=== PATIENT | female | born 1950 | race Caucasian/White ===

== ENCOUNTER → 2018-02-24 | Outpatient (CLI) | payer OTHER ==
[~2018-02-24] MED LIST: TESSALON PERLE100 MG PO; ZPAK PO
== END ==
LOC: M.RAD 02-04 16:57
DX: Z00.01 Encounter for general adult medical examination with abnormal findings (principal); Z12.31 Encounter for screening mammogram for malignant neoplasm of breast; Z78.0 Asymptomatic menopausal state; M85.89 Other specified disorders of bone density and structure, multiple sites

== ENCOUNTER → 2018-03-04 | Outpatient (CLI) | payer OTHER | LOC: M.NUC 02-24 08:36 | DX: E21.3 Hyperparathyroidism, unspecified (principal); E34.9 Endocrine disorder, unspecified ==

== ENCOUNTER → 2018-09-22 | Outpatient (CLI) | payer OTHER ==
[2018-09-22] VITALS (9 sets, daily range): BP systolic 106–134; BP diastolic 53–70
[~2018-09-22] MED LIST changes: +AMBIEN 10 MG TA10 MG PO; +AMBIEN 5 MG TABL5 M1 PO; +AMOXICILLIN 50500 MG; +ANORO ELLIPTA1 EACH INH; +ASPIRIN81 M2 PO; +CEFDINIR300 MG PO; +CLARITIN10 MG PO; +DIGOXIN125 MCG PO; +ELIQUIS5 MG PO; +FLEXERIL PO; +HYDROCHLOROTH12.5 M1 PO; +HYDROCHLOROTHIA25 M1 PO; +IMDUR 30 MG TAB30 M1 PO; +LIDOPATCH1 EACH TOP; +LISINOPRIL10 MG PO; +LISINOPRIL20 MG PO; +LISINOPRIL40 MG PO; +LIVALO4 MG PO; +LOPRESSOR25 PO; +MAXZIDE-25 MG1 EACH PO; +METFORMIN HCL500 MG PO; +PREDNISONE 10 M10 MG PO; +PROCARDIA XL30 MG PO; +SERTRALINE HCL50 MG PO; +SORINE 80 MG TA80 M1 PO; +TRAMADOL 50 MG50 MG PO; +TRAZODONE HCL50 MG PO; +VENTOLIN HFA 1818 GM INH; +VOLTAREN GEL 1100 G1 TOP; +VOLTAREN GEL 1100 G2 TOP; +XANAX 0.5 MG0.5 MG PO; +ZYRTEC10 MG PO
[2018-09-22 12:30] LABS: HEMOGLOBIN 12.6 gm/dL (12.0-15.0); MCH 28.6 pg (26.0-34.0); MCHC 33.3 g/dL (28.0-37.0); MPV 9.9 fl. (7.2-11.1); RBC 4.42 mil/uL (4.20-5.00); RDW-CV 13.7 % (10.5-14.5); WBC 8.2 thou/uL (4.0-11.0)
[2018-09-22 12:37] LABS: ANION GAP 9 mmol/L (7-16); BUN 12 mg/dL (7-18); CALCIUM 10.4 mg/dL (8.5-10.1); CHLORIDE 102 mmol/L (98-107); CO2 28 mmol/L (21-32); CREATININE 1.1 mg/dL (0.6-1.3); GLUCOSE 111 mg/dL (70-99); POTASSIUM 3.5 mmol/L (3.5-5.1); SODIUM 139 mmol/L (136-145)
[2018-09-22 12:38] LABS: APTT 27.7 Seconds (25.0-31.3); PROTIME 10.3 Seconds (9.20-11.50)
[2018-09-22 12:41] LABS: CHOLESTEROL 165 mg/dL (<200); HDL CHOLESTEROL 44 mg/dL (>40); LDL CHOLESTEROL 88 mg/dL (<100); TC:HDL 3.8 Ratio (Not establshd); TRIGLYCERIDE 165 mg/dL (<150); VLDL 33 mg/dL (<40)
[2018-09-22 12:44] LABS: SERUM ASSESSMENT Clear
--- NOTE | 2018-09-22 14:51 | EKG ---
[place] [address] ELECTROCARDIOGRAM REPORT Name: NABILA GAN Room: [facility]#: [id number] Admission: 09/22/18 Attend Phys: Ky Morgan MD Discharge: Date of : 46 Report #: [id number] THIS REPORT FOR: //name// [facility] Test Date: 2018-09-22 Test Time: 12:16:03 Pat Name: NABILA GAN Department: Room: Gender: F Call Center Agent: GUILLERMO : 1950 Requested By: Ky Morgan Order Number: [id number] Reading MD: Ky Morgan Measurements Intervals [place] Rate: 63 P: 56 [place]: 167 QRS: 30 QRSD: 108 T: 48 QT: 428 QTc: 439 Interpretive Statements Sinus rhythm Compared to ECG 10/27/2007 23:05:38 No significant changes Electronically Signed On 09-22-2018 14:51:41 CDT by Ky Morgan [email or web address] <ELECTRONICALLY SIGNED> By: Ky Morgan MD, [facility] 09/22/18 1451 1216 1216 Ky Morgan MD, FACC /EPI
--- NOTE | 2018-09-27 17:16 | CARD ---
[address] [address] CARDIAC CATH REPORT Name: NABILA GAN Room: [facility].#: [id number] Admission: 09/22/18 Attend Phys: Ky Morgan MD Discharge: Date of : 48 Report #: [id number] THIS REPORT FOR: //name// APPROVED REPORT Study performed: 09/22/2018 12:37:21 Patient Details Patient Status: Out-Patient Room #: The patient is a 68 year-old female Event Personnel Ky Morgan Pit Recorder, Agnieskza Goyal RN Weapons System Instrument Mechanic, Gerry Regaldao ScrubAlexander Anthony ARRT (R) Monitor Procedures Performed Left Heart Cath w/or w/o Coronaries Procedure Narrative The patient was brought electively to the Cardiac Catheterization Laboratory and was prepped and draped in a sterile manner. A 6fr Ultimum Sheath sheath was inserted into the right femoral artery. Coronary angiography was performed using coronary diagnostic catheters. The right coronary system was accessed and visualized with a Diagnostic JR 4 catheter. The left coronary system was accessed and visualized with a Diagnostic JL4 catheter. The left ventricle was accessed and visualized with a Diagnostic Angled Pig catheter. Left ventricular/Aortic Valve gradient assessed via catheter pullback. Closure device was deployed with a Fr Mynx 6Fr/7Fr. The patient tolerated the procedure well and there were no complications associated with the procedure. Intraoperative Conscious Sedation Sedation start time: 13:15 Case end Time: 13:38 Fentanyl 50 mcg Versed 2 mg Fluoro Time: 5.0 minutes Dose: DAP [id number] cGycm2 1538 mGy Contrast Type and Amount: Omnipaque 150 ml Coronary Angiography The patient's coronary anatomy is right dominant. [place] [address] CARDIAC CATH REPORT Name: NABILA GAN Room: [facility]#: [id number] Admission: 09/22/18 Attend Phys: Ky Morgan MD Discharge: Date of : 46 Report #: [id number] A MAI graft to the distal LAD was widely patent. A saphenous vein graft to a small first diagonal branch was widely patent. A saphenous vein graft sequentially grafted to the PDA, posterolateral LV branch of the right coronary artery, third obtuse marginal and first obtuse marginal branch was patent. There was a moderate 50% narrowing in the portion between the third and first obtuse marginal branch. Diagnostic Cath Left Main Free of significant disease and bifurcates into the LAD and circumflex systems. LAD Mildly plaqued proximally with an 80% mid stenosis followed by a long segment of diffuse disease up to 90% prior to the insertion of a MAI graft. The distal LAD is mildly plaqued and fills primarily by a MAI graft. Diagonal 1 Totally occluded and filled by saphenous vein graft. Small in caliber. Circumflex Free of significant disease. OM1 Totally occluded proximally and filled by a saphenous vein graft. OM2 Moderate size and branched area. Significant disease. OM3 Totally occluded proximally and filled by saphenous vein graft. Right Coronary 50% narrowed proximally. 80% narrowed after the takeoff of an acute marginal branch. The distal vessel is diffusely diseased. R PDA Totally occluded at the origin. Filled by saphenous vein graft. RPLV Moderate he's proximally. Filled by a saphenous vein graft. Left Ventriculography The left ventricle is normal in size with normal contractility. The left ventricular ejection fraction is estimated to be 55-60%. Left ventricular wall motion abnormalities are not present. Hemodynamics The aortic pressure is 172/76 mmHg with a mean of 113 mmHg. The left ventricular pressure is 175/4 mmHg with a mean of mmHg. The left ventricular end diastolic pressure is 22 mmHg. Conclusion 1. Severe three-vessel coronary artery disease [place] [address] CARDIAC CATH REPORT Name: NABILA GAN Room: [facility]#: [id number] Admission: 09/22/18 Attend Phys: Ky Morgan MD Discharge: Date of : 48 Report #: [id number] total occlusion of the first obtuse marginal, third obtuse marginal and posterior descending branches of the right coronary artery. 2. Patent MAI graft to the distal LAD. 3. Patent saphenous vein graft to the first diagonal branch. 4. Patent jump graft to the PDA, PL LV, third obtuse marginal and first obtuse marginal branch. There is a 50% narrowing in the portion of the graft from the third to first obtuse marginal branches. 5. Preserved left ventricular systolic function. 6. Moderately elevated left ventricular end-diastolic pressure. Recommendations 1. Continue medical management and aggressive risk factor modification. <ELECTRONICALLY SIGNED> By: Ky Morgan MD, [facility] 09/27/181715 15 15Micchani Morgan MD, FACC /INF
== END | disposition home or self-care (01) ==
LOC: M.CL 11:04
PROVIDERS: Internal Medicine Cardiovascular Disease
DX: I25.709 Atherosclerosis of coronary artery bypass graft(s), unspecified, with unspecified angina pectoris (principal); I11.0 Hypertensive heart disease with heart failure; I50.30 Unspecified diastolic (congestive) heart failure; J44.9 Chronic obstructive pulmonary disease, unspecified; F41.9 Anxiety disorder, unspecified; G47.00 Insomnia, unspecified; Z87.01 Personal history of pneumonia (recurrent); Z91.040 Latex allergy status; Z88.2 Allergy status to sulfonamides; Z79.899 Other long term (current) drug therapy; Z79.82 Long term (current) use of aspirin; Z79.01 Long term (current) use of anticoagulants

== ENCOUNTER 2018-10-18 18:37 | Inpatient (IN) | payer OTHER ==
[~2018-10-18] VITALS: Ht 160 cm; Wt 86.6 kg
[~2018-10-18 18:37] MED LIST changes: -AMBIEN 10 MG TA10 MG PO; -AMBIEN 5 MG TABL5 M1 PO; -AMOXICILLIN 50500 MG; -CEFDINIR300 MG PO; -DIGOXIN125 MCG PO; -ELIQUIS5 MG PO; -HYDROCHLOROTH12.5 M1 PO; -HYDROCHLOROTHIA25 M1 PO; -LIDOPATCH1 EACH TOP; -LISINOPRIL10 MG PO; -LISINOPRIL40 MG PO; -PROCARDIA XL30 MG PO; -SORINE 80 MG TA80 M1 PO; -TRAMADOL 50 MG50 MG PO; -XANAX 0.5 MG0.5 MG PO
[2018-10-18 18:46] VITALS: BP 189/79
[2018-10-18 19:10] LABS: ABSOLUTE BASOPHILS 0.1 thou/uL (0.0-0.2); ABSOLUTE EOSINOPHILS 0.1 thou/uL (0.0-0.7); ABSOLUTE LYMPHOCYTES 1.4 thou/uL (0.8-5.3); ABSOLUTE MONOCYTES 0.9 thou/uL (0.0-1.2); ABSOLUTE NEUTROPHILS 9.1 thou/uL (1.6-8.1); BASOPHILS 0.8 %; EOSINOPHILS 0.7 %; HEMATOCRIT 36.6 % (37.0-47.0); HEMOGLOBIN 12.4 gm/dL (12.0-15.0); LYMPHOCYTES 11.8 %; MCH 28.9 pg (26.0-34.0); MCHC 33.9 g/dL (28.0-37.0); MCV 85.1 fL (80.0-100.0); MONOCYTES 7.8 %; MPV 8.7 fl. (7.2-11.1); NUCLEATED RBCS 0 /100WBC; PLATELET COUNT* 374 thou/uL (150-400); POLYS 78.9 %; RDW-CV 13.3 % (10.5-14.5); WBC 11.5 thou/uL (4.0-11.0)
[2018-10-18] MEDS ORDERED: AMOXICILLIN 50500 MG (19:10)
[2018-10-18 19:18] LABS: ANION GAP 10 mmol/L (7-16); BUN 17 mg/dL (7-18); CHLORIDE 97 mmol/L (98-107); CO2 27 mmol/L (21-32); CREATININE 1.2 mg/dL (0.6-1.3); GLUCOSE 166 mg/dL (70-99); POTASSIUM 3.8 mmol/L (3.5-5.1); SODIUM 134 mmol/L (136-145)
[2018-10-18 19:20] LABS: APTT 24.3 Seconds (25.0-31.3); INR 0.9; PROTIME 9.4 Seconds (9.20-11.50)
[2018-10-18 19:28] LABS: ALBUMIN 3.3 g/dL (3.4-5.0); ALKALINE PHOSPHATASE 85 U/L (46-116); SGOT 17 U/L (15-37); SGPT 24 U/L (30-65); TOTAL BILIRUBIN 0.6 mg/dL (<0.1-1.0); TOTAL PROTEIN 7.2 g/dL (6.4-8.2); TROPONIN-I LEVEL <0.06 ng/mL (<0.06)
[2018-10-18 20:31] LABS: URINE BILIRUBIN NEGATIVE (Negative); URINE BLOOD 3+ (Negative); URINE CLARITY CLEAR; URINE COLOR YELLOW; URINE GLUCOSE-RANDOM NEGATIVE (Negative); URINE KETONES NEGATIVE (Negative); URINE LEUKOCYTES-REFLEX NEGATIVE (Negative); URINE NITRITE-REFLEX NEGATIVE (Negative); URINE PROTEIN 2+ (Negative); URINE SPECIFIC GRAVITY 1.025 (1.005-1.030); URINE UROBILINOGEN 0.2 E.U./dl (0.2-1.0)
[2018-10-18 20:37] LABS: CASTS None Seen /LPF (None Seen); CRYSTALS None Seen /LPF (None Seen); MUCUS 0-3 Light strn/LPF (None Seen); SQUAMOUS NONE SEEN /LPF (0-3); URINE RBC 0-2 Rare /HPF (0-2)
[2018-10-18 20:57] LABS: BE 0.5 mmol/L (-2 to +3); PCO2 37.1 mmHg (35.0-45.0); PO2 62.3 mmHg (75.0-100.0); pH 7.436 (7.340-7.450)
[2018-10-18 21:57] VITALS: BP 163/72
[2018-10-19] VITALS (10 sets, daily range): BP systolic 118–172; BP diastolic 57–94
[2018-10-19] MEDS ORDERED: LOPRESSOR25 PO (00:55)
--- NOTE | 2018-10-19 10:35 | EKG ---
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: AJ : 1950 Requested By: Damir Callejas Order Number: [id number] Olaf MD: Donnell Dudlye Measurements Intervals [place] Rate: 147 P: [place]: QRS: -22 QRSD: 170 T: 267 QT: 359 QTc: 562 Interpretive Statements Atrial flutter with predominant 2:1 AV block Prolonged QT interval Compared to ECG 09/22/2018 12:16:03 atrial flutter with block is noted Prolonged QT interval now present Sinus rhythm no longer present Electronically Signed On 10-19-2018 10:34:59 CDT by Donnell Dudley [email or web address] <ELECTRONICALLY SIGNED> By: Donnell Dudley MD, [facility] 10/19/18 1034 Donnell Dudley MD, [facility] /EPI
--- NOTE | 2018-10-19 15:54 | EKG ---
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
[2018-10-20] VITALS: BP 116/63
[2018-10-20 04:00] VITALS: BP 134/67
[2018-10-20 08:00] VITALS: BP 148/79
[2018-10-20 12:32] VITALS: BP 137/82
[2018-10-20 16:36] VITALS: BP 134/95
--- NOTE | 2018-10-20 17:16 | EKG ---
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: : 1950 Requested By: Samina Pinto Order Number: [id number] Reading MD: Ky Morgan Measurements Intervals [place] Rate: 83 P: SD: QRS: 28 QRSD: 126 T: 263 QT: 459 QTc: 540 Interpretive Statements Atrial flutter with varied AV block, Nonspecific intraventricular conduction delay Borderline repolarization abnormality Compared to ECG 10/19/2018 01:07:10 Intraventricular conduction delay now present 2:1 AV block no longer present Prolonged QT interval no longer present Electronically Signed On 10-20-2018 17:16:14 CDT by Ky Morgan [email or web address] <ELECTRONICALLY SIGNED> By: Ky Morgan MD, FAC 10/20/18 1716 0841 0841 Ky Morgan MD, FAC /EPI
[2018-10-20 20:00] VITALS: BP 169/102
[2018-10-21] VITALS (13 sets, daily range): BP systolic 118–166; BP diastolic 63–113
[2018-10-21 05:10] LABS: HEMATOCRIT 35.8 % (37.0-47.0); HEMOGLOBIN 11.9 gm/dL (12.0-15.0); MCH 29.7 pg (26.0-34.0); MCHC 33.2 g/dL (28.0-37.0); MCV 89.2 fL (80.0-100.0); MPV 8.6 fl. (7.2-11.1); NUCLEATED RBCS 0 /100WBC; PLATELET COUNT* 447 thou/uL (150-400); RBC 4.01 mil/uL (4.20-5.00); RDW-CV 13.9 % (10.5-14.5)
[2018-10-21 05:16] LABS: CALCIUM 9.9 mg/dL (8.5-10.1)
[2018-10-21 06:47] LABS: ABSOLUTE EOSINOPHILS 0.2 thou/uL (0.0-0.7); ABSOLUTE LYMPHOCYTES 2.7 thou/uL (0.8-5.3); ABSOLUTE MONOCYTES 1.7 thou/uL (0.0-1.2); ABSOLUTE NEUTROPHILS 12.4 thou/uL (1.6-8.1); ATYPICAL LYMPHS 3 %; METAMYELOCYTES 1 %; PLATELET ESTIMATE ADEQUATE
[2018-10-21 06:49] LABS: HYPOCHROMASIA Occasional
--- NOTE | 2018-10-21 14:34 | EKG ---
[place] [address] ELECTROCARDIOGRAM REPORT Name: NABILA GAN Room: [address] ADM IN M.R.#: [id number] Admission: 10/18/18 Attend Phys: Damir Callejas MD Discharge: Date of : 46 Report #: [id number] THIS REPORT FOR: //name// [facility] Test Date: 2018-10-21 Test Time: 08:27:11 Pat Name: NABILA GAN Department: Room: [address] Gender: F Equal Opportunity Assistant: : 1950 Requested By: Samina Pinto Order Number: [id number] Reading MD: Chester Tavares Measurements Intervals [place] Rate: 106 P: [place]: QRS: 37 QRSD: 97 T: 251 QT: 334 QTc: 444 Interpretive Statements Atrial flutter Nonspecific repol abnormality, diffuse leads Compared to ECG 10/20/2018 08:41:02 rate increased Electronically Signed On 10-21-2018 14:34:41 CDT by Chester Tavares [email or web address] <ELECTRONICALLY SIGNED> By: Chester Tavares MD, [facility] 10/21/18 1434 08 08 Chester Tavares MD, [facility] /EPI
--- NOTE | 2018-10-21 14:52 | TEE ---
[place] [address] TRANSESOPHAGEAL ECHOCARDIOGRAM Name: NABILA GAN Room: [address] IN [facility]#: [id number] Admission: 10/18/18 Attend Phys: Damir Callejas, Discharge: Date of : 46 Date of Service: 10/21/18 1451 Report #: [id number] THIS REPORT FOR: //name// APPROVED REPORT Study performed: 10/21/2018 13:24:58 EXAM: Comprehensive 2D, Doppler, and color-flow Echocardiogram Patient Location: In-Patient Room #: [facility] Status: routine BSA: 1.94 HR: 101 bpm BP: 154/94 mmHg Rhythm: Atrial Flutter Other Information Study Quality: Good Indications Atrial Fibrillation Echo Enhancing Agent Indication: Rule out Shunt Agent(s) / Amount(s) Used: Agitated Saline 10 cc Procedure After obtaining informed consent, patient underwent transesophageal echo in the [facility]. Type of Sedation : Conscious Sedation Sedation was administered by Diamante Gaitan RN. Sedation start time: 1335 Case end Time: 1346 Sedation was achieved intravenously with: Versed (3) Fentanyl (75) Transesophageal probe was inserted and advanced into esophagus without difficulty by Ky Morgan MD, FACC. Echo enhancement indication: R/O Septal defect. Echo enhancement agent administered: Agitated Saline The ANICETO was performed without complications. Synchronized Cardioversion acheived with 200 Joules after 1 attempt(s). Rhythm following Synchronized Cardioversion: Normal Sinus Rhythm Throughout the procedure, the blood pressure, pulse oximetry, cardiac rhythm, and rate were monitored. [address] [address] TRANSESOPHAGEAL ECHOCARDIOGRAM Name: NABILA GAN Room: [address] IN [facility]#: [id number] Admission: 10/18/18 Attend Phys: Damir Callejas, Discharge: Date of : 46 Date of Service: 10/21/18 1451 Report #: [id number] The patient tolerated the procedure without adverse effects. Recovery from conscious sedation was uneventful and vital signs were stable. Left Ventricle The left ventricle is normal size. There is normal LV segmental wall motion. There is normal left ventricular wall thickness. Left ventricular systolic function is normal. LVEF is 65-70%. Right Ventricle The right ventricle is normal size. The right ventricular systolic function is normal. Atria The left atrium size is normal. No thrombus is visualized in the left atrium or appendage. Interatrial septum is intact without evidence of ASD or PFO. The right atrium size is normal. Aortic Valve Aortic valve leaflets are mildly thickened. No aortic regurgitation is present. There is no aortic valvular stenosis. Mitral Valve The mitral valve is normal in structure. Mild mitral regurgitation. No evidence of mitral valve stenosis. Tricuspid Valve The tricuspid valve is normal in structure. Mild tricuspid regurgitation. Pulmonic Valve The pulmonary valve is normal in structure. There is no pulmonic valvular regurgitation. Great Vessels The aortic root is normal in size. Pericardium There is no pericardial effusion. <Conclusion> The left ventricle is normal size. There is normal left ventricular wall thickness. Left ventricular systolic function is normal. LVEF is 65-70%. No thrombus is visualized [place] [address] TRANSESOPHAGEAL ECHOCARDIOGRAM Name: NABILA GAN Room: [address] IN [facility]#: [id number] Admission: 10/18/18 Attend Phys: Damir Callejas, Discharge: Date of : 46 Date of Service: 10/21/181450 Report #: [id number] appendage. Interatrial septum is intact without evidence of ASD or PFO. Mild mitral regurgitation. Mild tricuspid regurgitation. <ELECTRONICALLY SIGNED> By: Ky Morgan MD, [facility] 10/21/181450 50 50 Ky Morgan MD, FACC /INF
--- NOTE | 2018-10-21 14:57 | EKG ---
[place] [address] ELECTROCARDIOGRAM REPORT Name: NABILA GAN Room: [address] ADM IN M.R.#: [id number] Admission: 10/18/18 Attend Phys: Damir Callejas MD Discharge: Date of : 46 Report #: [id number] THIS REPORT FOR: //name// [facility] Test Date: 2018-10-21 Test Time: 13:51:20 Pat Name: NABILA GAN Department: Room: [address] Gender: F Strickler Attendant: : 1950 Requested By: Ky Morgan Order Number: [id number] Reading MD: Chester Tavares Measurements Intervals [place] Rate: 75 P: 43 [place]: 149 QRS: 20 QRSD: 95 T: 238 QT: 392 QTc: 438 Interpretive Statements Sinus rhythm Sinus pause Abnormal R-wave progression, early transition Nonspecific repol abnormality, diffuse leads Baseline wander in lead(s) II,III,aVL,aVF,V2,V3,V4 Compared to ECG 10/20/2018 08:41:02 Sinus pause or arrest now present Atrial flutter no longer present Intraventricular conduction delay no longer present Electronically Signed On 10-21-2018 14:56:56 CDT by Chester Tavares [email or web address] <ELECTRONICALLY SIGNED> By: Chester Tavares MD, [facility] 10/21/18 1456 1351 1351 Chester Tavares MD, [facility] /EPI
[2018-10-22 01:49] VITALS: BP 154/75
[2018-10-22 04:00] VITALS: BP 173/69
[2018-10-22 08:00] VITALS: BP 159/93
[2018-10-22 10:02] LABS: ABSOLUTE BASOPHILS 0.2 thou/uL (0.0-0.2); ABSOLUTE EOSINOPHILS 0.1 thou/uL (0.0-0.7); ABSOLUTE LYMPHOCYTES 2.7 thou/uL (0.8-5.3); ABSOLUTE MONOCYTES 1.3 thou/uL (0.0-1.2); ABSOLUTE NEUTROPHILS 8.7 thou/uL (1.6-8.1); BASOPHILS 1.4 %; EOSINOPHILS 0.7 %; HEMATOCRIT 37.6 % (37.0-47.0); HEMOGLOBIN 12.9 gm/dL (12.0-15.0); LYMPHOCYTES 20.7 %; MCH 29.8 pg (26.0-34.0); MCHC 34.2 g/dL (28.0-37.0); MCV 87.2 fL (80.0-100.0); MONOCYTES 10.3 %; MPV 8.3 fl. (7.2-11.1); NUCLEATED RBCS 0 /100WBC; PLATELET COUNT* 400 thou/uL (150-400); POLYS 66.9 %; RBC 4.31 mil/uL (4.20-5.00); RDW-CV 13.7 % (10.5-14.5)
[2018-10-22 10:19] LABS: ALBUMIN 2.9 g/dL (3.4-5.0); CREATININE 1.1 mg/dL (0.6-1.3); POTASSIUM 3.7 mmol/L (3.5-5.1); TOTAL BILIRUBIN 0.4 mg/dL (<0.1-1.0); TOTAL PROTEIN 6.6 g/dL (6.4-8.2)
[2018-10-22 12:00] VITALS: BP 128/87
[2018-10-22 13:16] LABS: APTT 25.5 Seconds (25.0-31.3); INR 0.9; PROTIME 9.7 Seconds (9.20-11.50)
[2018-10-22 16:00] VITALS: BP 137/79
[2018-10-22 20:00] VITALS: BP 144/88; BP 147/90
[2018-10-23] VITALS: BP 155/65
[2018-10-23 04:00] VITALS: BP 138/87
[2018-10-23 04:46] LABS: HEMATOCRIT 35.9 % (37.0-47.0); HEMOGLOBIN 12.1 gm/dL (12.0-15.0); MCH 30.3 pg (26.0-34.0); MCHC 33.7 g/dL (28.0-37.0); MCV 89.9 fL (80.0-100.0); MPV 8.8 fl. (7.2-11.1); RDW-CV 13.5 % (10.5-14.5)
[2018-10-23 04:59] LABS: CALCIUM 9.6 mg/dL (8.5-10.1); CREATININE 1.1 mg/dL (0.6-1.3); POTASSIUM 4.1 mmol/L (3.5-5.1)
[2018-10-23 12:00] VITALS: BP 139/69
[2018-10-23 16:00] VITALS: BP 130/67
[2018-10-23 20:00] VITALS: BP 144/88
[2018-10-24 00:42] VITALS: BP 174/93
[2018-10-24 04:50] VITALS: BP 168/87
[2018-10-24 09:03] VITALS: BP 175/80
[2018-10-24 12:00] VITALS: BP 140/83
--- NOTE | 2018-10-24 13:40 | EKG ---
[place] [address] ELECTROCARDIOGRAM REPORT Name: NABILA GAN Room: [address] ADM IN .R.#: [id number] Admission: 10/18/18 Attend Phys: Damir Callejas MD Discharge: Date of : 46 Report #: [id number] THIS REPORT FOR: //name// [facility] Test Date: 2018-10-21 Test Time: 21:35:02 Pat Name: NABILA GAN Department: Room: [address] Gender: F Factory Manager: LYUDMILA : 1950 Requested By: Damir Callejas Order Number: [id number] Reading MD: Chester Tavares Measurements Intervals [place] Rate: 88 P: [place]: QRS: -1 QRSD: 161 T: 268 QT: 370 QTc: 448 Interpretive Statements Atrial flutter Compared to ECG 10/21/2018 13:51:20 Sinus rhythm no longer present Electronically Signed On 10-24-2018 13:40:35 CDT by Chester Tavares [email or web address] <ELECTRONICALLY SIGNED> By: Chester Tavares MD, [facility] 10/24/18 1340 34 34 Chester Tavares MD, [facility] /EPI
--- NOTE | 2018-10-24 14:00 | EKG ---
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
--- NOTE | 2018-10-24 17:14 | CARD ---
[place] [address] CARDIAC CATH REPORT Name: MALIKNABILA SAMUEL Room: [address] IN [facility]#: [id number] Admission: 10/18/18 Attend Phys: Damir Callejas MD Discharge: Date of : 46 Report #: [id number] THIS REPORT FOR: //name// APPROVED REPORT Study performed: 10/23/2018 12:39:42 Patient Status: In-Patient Room #: 205 Event Personnel: Ky Morgan MD, Dried Yeast Supervisor; Araceli Walker)BID ANALYST, Scrub, Aleyda Aguilar RN, Monitor; Sagrario Benz RN, Buckle Inspector Exam: Insertion of Dual Chamber Permanent Pacemaker Indications: Sick Sinus Syndrome/Tachy Noe Syndrome The patient is a 68 year-old female with a history of Sick Sinus Syndrome and Atrial Flutter. Conscious Sedation Fentanyl 50.0 mcg Versed 2.0 mg Implanted Devices: Biotronik Eluna 8 DR-T, model #690073, serial #[id number] dual-chamber pacemaker generator. Biotronik Solia S 53, model #305821, serial # [id number] ventricular lead. Biotronik Solia S 45, model #527439, serial #[id number] atrial lead. Procedure The patient underwent informed consent. We discussed the details of the procedure including the risks, which include, but not limited to bleeding, infection, vascular damage, cardiac perforation, and pneumothorax. She understood these risks and was willing to proceed. As such, she was brought to the EP/Cardiac Catheterization laboratory in a fasting and sedated state and prepped and draped in a sterile fashion, received IV antibiotics prior to initiation of the procedure and a venogram was performed showing patency of the left axillary vein. The patient underwent conscious sedation, with no related complications. The patient was brought to the EP/Cardiac Catheterization laboratory and the left chest and shoulder were prepped and draped in a sterile manner. During this case, Fluoroscopy and visipaque 20cc were used for imaging. The left subclavian region was infiltrated with 2% [place] [address] CARDIAC CATH REPORT Name: NABILA GAN Room: [address]#: [id number] Admission: 10/18/18 Attend Phys: Damir Callejas MD Discharge: Date of : 46 Report #: [id number] subcutaneous anesthesia. A transverse incision was made in the left upper chest cavity. The subcutaneous pocket was formed via blunt dissection. Percutaneous venous access was achieved and an introducer sheath was inserted into the left Subclavian vein. Sheaths were positions using the modified Seldinger technique Through the introducer sheaths the atrial and ventricular lead wires were positioned in the right atrial appendage and right ventricular apex respectively. Capturing and sensing thresholds were verified. Electrode Parameters P Wave: 2.9 R Wave: 6.8 Atrial Threshold: 0.6 V at 0.40 ms Ventricular Threshold: 0.6 V at 0.40 ms Atrial Resistance: 643 ohms Ventricular Resistance: 838 ohms Dual Chamber The atrial and ventricular leads were then secured using 0 silk sutures. The subcutaneous pocket was irrigated with antibiotic solution.The atrial and ventricular leads were attached to the appropriate receptacles on the pulse generator and set screws firmly tightened to insure adequate contact and stability. Generator Change The lead was attached to the appropriate receptacle on the new pulse generator and setscrews firmly tightened to insure adequate contact and stability. The lead and pulse generator were placed into the subcutaneous pocket. Sharp and sponge counts were confirmed to be correct. At this time the pocket was closed subcutaneously with a 2.0 Vicryl and the skin was closed with a 4.0 Vicryl. The operative site was dressed in sterile fashion with steri strips and the patient was transferred to the floor in stable condition. Complications The patient tolerated the procedure well and there were no complications associated with the procedure. Findings Mode DDD/CLS. Lower rate 60 bpm. Upper tracking rate 130 [place] [address] CARDIAC CATH REPORT Name: NABILA GAN Room: [address] IN M.R.#: [id number] Admission: 10/18/18 Attend Phys: Damir Callejas MD Discharge: Date of : 46 Report #: [id number] Conclusion 1. Sick sinus syndrome/paroxysmal atrial flutter. 2 successful placement of a dual-chamber pacemaker with atrial and ventricular lead placement. Recommendations 1. Follow-up site check in one week. 2. Follow-up device interrogation in one month. <ELECTRONICALLY SIGNED> By: Ky Morgan MD, [facility] 10/24/18 1714 13 1714Micchani Morgan MD, FAC /INF
[2018-10-24 20:00] VITALS: BP 158/79
[2018-10-25 00:29] VITALS: BP 125/83; BP 165/85
[2018-10-25 08:00] VITALS: BP 150/87
--- NOTE | 2018-10-25 11:28 | EKG ---
[place] [address] ELECTROCARDIOGRAM REPORT Name: NABILA GAN Room: [address] ADM IN M.R.#: [id number] Admission: 10/18/18 Attend Phys: Damir Callejas MD Discharge: Date of : 46 Report #: [id number] THIS REPORT FOR: //name// [facility] Test Date: 2018-10-24 Test Time: 17:32:27 Pat Name: NABILA GAN Department: Room: [address] Gender: F Launch Check Out: KF : 1950 Requested By: Samina Pinto Order Number: [id number] Reading MD: Andrew Marvin Measurements Intervals [place] Rate: 80 P: 51 [place]: 143 QRS: 29 QRSD: 97 T: QT: 379 QTc: 438 Interpretive Statements Sinus rhythm Borderline repolarization abnormality Compared to ECG 10/23/2018 08:35:51 Intraventricular conduction delay no longer present Electronically Signed On 10-25-2018 11:28:16 CDT by Andrew Marvin [email or web address] <ELECTRONICALLY SIGNED> By: Andrew Marvin MD, [facility] 10/25/18 1128 1732 173 Andrew Marvin MD, [facility] /EPI
--- NOTE | 2018-10-25 11:36 | EKG ---
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 : 1950 Requested By: Ky Morgan Order Number: [id number] Reading MD: Andrew Marvin Measurements Intervals [place] Rate: 126 P: [place]: QRS: 13 QRSD: 107 T: 197 QT: 285 QTc: 413 Interpretive Statements Atrial flutter with 2:1 AV block Repol abnrm suggests ischemia, diffuse leads Compared to ECG 10/23/2018 08:35:51 2:1 AV block now present Early repolarization now present Possible ischemia now present Intraventricular conduction delay no longer present Electronically Signed On 10-25-2018 11:35:55 CDT by Andrew Marvin [email or web address] <ELECTRONICALLY SIGNED> By: Andrew Marvin MD, FAC 10/25/18 1135 0259 0259 Andrew Marvin MD, FAC /EPI
[2018-10-25 11:49] VITALS: BP 150/87
[2018-10-25 11:58] VITALS: BP 155/76
[2018-10-25] MEDS ORDERED: PREDNISONE 10 M10 MG PO (11:59)
[2018-10-25] MEDS ORDERED: SORINE 80 MG TA80 M1 PO (11:59)
[2018-10-25] MEDS ORDERED: CEFDINIR300 MG PO (11:59)
[2018-10-25] MEDS ORDERED: ELIQUIS5 MG PO (11:59)
[2018-10-25] MEDS ORDERED: LISINOPRIL10 MG PO (11:59)
[2018-10-25] MEDS ORDERED: DIGOXIN125 MCG PO (14:22)
--- NOTE | 2018-10-25 16:20 | CARD ---
[address] [address] CARDIAC CATH REPORT Name: NABILA GAN Room: [address] IN .R.#: [id number] Admission: 10/18/18 Attend Phys: Damir Callejas MD Discharge: Date of : 46 Report #: [id number] THIS REPORT FOR: //name// CC: Damir Coronado DO CARDIAC PROCEDURE PROCEDURE: DC cardioversion. INDICATION: Persistent atrial flutter. DESCRIPTION OF PROCEDURE: After informed consent was obtained, the patient was brought to the cardiac holding area. A transesophageal echocardiogram was performed and will be reported separately. Finding no thrombus in the left atrium or atrial appendage. We proceeded with direct current cardioversion. The patient received a single shock of 200 joules. The initial rhythm was approximately 20 seconds of asystole followed by a junctional escape and ultimately sinus rhythm. The patient tolerated the procedure well without complication. She was returned to the floor in stable condition. IMPRESSION: 1. Persistent atrial flutter. 2. Successful cardioversion to normal sinus rhythm. <ELECTRONICALLY SIGNED> By: Ky Morgan MD, [facility] 10/25/18 1620 1724 [id number] Morgan MD, FACC /nt
== END 2018-10-25 16:38 | disposition home health service (06) | DRG 242 ==
LOC: M.ERS 18:37 → M.TBA-ER 20:34 → M.2W 20:34
PROVIDERS: Emergency Medicine; Internal Medicine Cardiovascular Disease; Personal Emergency Response Attendant; ADMIT Internal Medicine
PROC: 5A2204Z Restoration of Cardiac Rhythm, Single (ICD-10-PCS; principal; 2018-10-21)
PROC: B24BZZ4 Ultrasonography of Heart with Aorta, Transesophageal (ICD-10-PCS; principal; 2018-10-21)
PROC: 0JH606Z Insertion of Pacemaker, Dual Chamber into Chest Subcutaneous Tissue and Fascia, Open Approach (ICD-10-PCS; 2018-10-24)
PROC: B51M1ZZ Fluoroscopy of Right Upper Extremity Veins using Low Osmolar Contrast (ICD-10-PCS; 2018-10-24)
PROC: 02H63JZ Insertion of Pacemaker Lead into Right Atrium, Percutaneous Approach (ICD-10-PCS; 2018-10-24)
PROC: 02HK3JZ Insertion of Pacemaker Lead into Right Ventricle, Percutaneous Approach (ICD-10-PCS; 2018-10-24)
DX: I49.5 Sick sinus syndrome (principal); J15.6 Pneumonia due to other Gram-negative bacteria; J96.00 Acute respiratory failure, unspecified whether with hypoxia or hypercapnia; I48.92 Unspecified atrial flutter; J44.0 Chronic obstructive pulmonary disease with (acute) lower respiratory infection; J44.1 Chronic obstructive pulmonary disease with (acute) exacerbation; I10 Essential (primary) hypertension; I48.0 Paroxysmal atrial fibrillation; D72.829 Elevated white blood cell count, unspecified; E78.5 Hyperlipidemia, unspecified; I25.10 Atherosclerotic heart disease of native coronary artery without angina pectoris; J40 Bronchitis, not specified as acute or chronic; E11.9 Type 2 diabetes mellitus without complications; Z79.82 Long term (current) use of aspirin; Z79.84 Long term (current) use of oral hypoglycemic drugs; Z79.899 Other long term (current) drug therapy; Z98.61 Coronary angioplasty status; Z88.2 Allergy status to sulfonamides; Z91.040 Latex allergy status; Z87.891 Personal history of nicotine dependence; Z90.49 Acquired absence of other specified parts of digestive tract

== ENCOUNTER 2018-11-03 11:28 | Emergency (ER) | payer OTHER ==
[~2018-11-03] VITALS: Ht 160 cm; Wt 83.0 kg
[~2018-11-03 11:28] MED LIST changes: +AMOXICILLIN 50500 MG; +CEFDINIR300 MG PO; +DIGOXIN125 MCG PO; +ELIQUIS5 MG PO; +LISINOPRIL10 MG PO; +SORINE 80 MG TA80 M1 PO
[2018-11-03 12:19] LABS: MCV 85.1 fL (80.0-100.0); NUCLEATED RBCS 0 /100WBC; PLATELET COUNT* 273 thou/uL (150-400)
[2018-11-03 12:24] LABS: HEMATOCRIT 35.9 % (37.0-47.0); HEMOGLOBIN 11.9 gm/dL (12.0-15.0); MCH 28.2 pg (26.0-34.0); MCHC 33.2 g/dL (28.0-37.0); MPV 9.1 fl. (7.2-11.1); RBC 4.22 mil/uL (4.20-5.00); RDW-CV 14.4 % (10.5-14.5)
[2018-11-03 12:29] LABS: CALCIUM 9.6 mg/dL (8.5-10.1); POTASSIUM 3.9 mmol/L (3.5-5.1)
[2018-11-03 12:40] LABS: ALBUMIN 2.9 g/dL (3.4-5.0); TOTAL BILIRUBIN 0.3 mg/dL (<0.1-1.0); TOTAL PROTEIN 6.3 g/dL (6.4-8.2)
[2018-11-03 13:08] LABS: ABSOLUTE MONOCYTES 0.6 thou/uL (0.0-1.2); ABSOLUTE NEUTROPHILS 12.5 thou/uL (1.6-8.1); PLATELET ESTIMATE ADEQUATE
[2018-11-03] MEDS ORDERED: HYDROCHLOROTH12.5 M1 PO (13:21)
[2018-11-03 13:49] VITALS: BP 166/68
--- NOTE | 2018-11-04 09:41 | EKG ---
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: : 1950 Requested By: Chalo Saldnaa Order Number: [id number] MD: Andrew Marvin Measurements Intervals [place] Rate: 60 P: VT: 137 QRS: 22 QRSD: 93 T: 47 QT: 467 QTc: 467 Interpretive Statements Atrial-paced rhythm Borderline repolarization abnormality Compared to ECG 10/25/2018 02:59:50 Atrial flutter no longer present 2:1 AV block no longer present Possible ischemia no longer present Electronically Signed On 11-04-2018 9:41:17 CDT by Andrew Marvin [email or web address] <ELECTRONICALLY SIGNED> By: Andrew Marvin MD, [facility] 11/04/18 0941 1148 1148 Andrew Marvin MD, [facility] /EPI
== END 2018-11-03 13:51 | disposition home or self-care (01) ==
LOC: M.ERS 11:28
PROVIDERS: Emergency Medicine
DX: I10 Essential (primary) hypertension (principal); E11.9 Type 2 diabetes mellitus without complications; J44.9 Chronic obstructive pulmonary disease, unspecified; I48.91 Unspecified atrial fibrillation; Z96.89 Presence of other specified functional implants; Z95.1 Presence of aortocoronary bypass graft; Z88.2 Allergy status to sulfonamides; Z91.040 Latex allergy status

== ENCOUNTER 2018-11-26 18:15 | Emergency (ER) | payer OTHER ==
[~2018-11-26] VITALS: Ht 160 cm; Wt 82.1 kg
[~2018-11-26 18:15] MED LIST changes: +HYDROCHLOROTH12.5 M1 PO
[2018-11-26] MEDS ORDERED: LISINOPRIL40 MG PO (18:26)
[2018-11-26 19:03] LABS: ABSOLUTE BASOPHILS 0.1 thou/uL (0.0-0.2); ABSOLUTE EOSINOPHILS 0.2 thou/uL (0.0-0.7); ABSOLUTE MONOCYTES 0.8 thou/uL (0.0-1.2); ABSOLUTE NEUTROPHILS 4.5 thou/uL (1.6-8.1); EOSINOPHILS 2.5 %; HEMATOCRIT 33.8 % (37.0-47.0); HEMOGLOBIN 11.6 gm/dL (12.0-15.0); LYMPHOCYTES 25.8 %; MCH 29.5 pg (26.0-34.0); MCHC 34.4 g/dL (28.0-37.0); MCV 85.7 fL (80.0-100.0); MONOCYTES 10.7 %; MPV 8.7 fl. (7.2-11.1); NUCLEATED RBCS 0 /100WBC; PLATELET COUNT* 249 thou/uL (150-400); RBC 3.95 mil/uL (4.20-5.00); RDW-CV 15.5 % (10.5-14.5); WBC 7.6 thou/uL (4.0-11.0)
[2018-11-26 19:14] LABS: ANION GAP 8 mmol/L (7-16); BUN 13 mg/dL (7-18); CALCIUM 9.3 mg/dL (8.5-10.1); CHLORIDE 100 mmol/L (98-107); CO2 30 mmol/L (21-32); CREATININE 1.2 mg/dL (0.6-1.3); GLUCOSE 138 mg/dL (70-99); POTASSIUM 3.2 mmol/L (3.5-5.1); SODIUM 138 mmol/L (136-145)
[2018-11-26 19:18] LABS: APTT 27.7 Seconds (25.0-31.3); PROTIME 10.1 Seconds (9.20-11.50)
[2018-11-26 19:28] LABS: ALBUMIN 3.3 g/dL (3.4-5.0); ALKALINE PHOSPHATASE 61 U/L (46-116); LIPASE 98 U/L (73-393); MAGNESIUM 1.8 mg/dL (1.8-2.4); NT-PRO BRAIN NAT PEPTIDE 974 pg/mL (<300); SGOT 16 U/L (15-37); SGPT 31 U/L (30-65); TOTAL BILIRUBIN 0.3 mg/dL (<0.1-1.0); TOTAL PROTEIN 6.2 g/dL (6.4-8.2); TROPONIN-I LEVEL <0.06 ng/mL (<0.06)
[2018-11-26] MEDS ORDERED: AMBIEN 5 MG TABL5 M1 PO ×2 (19:40)
[2018-11-26 20:01] VITALS: BP 192/80
--- NOTE | 2018-11-28 12:33 | EKG ---
[place] [address] ELECTROCARDIOGRAM REPORT Name: NABILA GAN Room: [facility]#: [id number] Admission: 11/26/18 Attend Phys: Discharge: 11/26/18 Date of : 46 Report #: [id number] THIS REPORT FOR: //name// [facility] ED Test Date: 2018-11-26 Test Time: 18:19:35 Pat Name: NABILA GAN Department: Room: Gender: F Jacquard Loom Weaver: DA : 1950 Requested By: George Pal Order Number: [id number] MD: Chester Tavares Measurements Intervals [place] Rate: 65 P: 58 TN: 148 QRS: 27 QRSD: 99 T: 162 QT: 392 QTc: 408 Interpretive Statements Sinus rhythm Nonspecific repol abnormality, diffuse leads Compared to ECG 11/03/2018 11:48:45 Atrial-paced complex(es) or rhythm no longer present Electronically Signed On 11-28-2018 12:33:02 CDT by Chester Tavares [email or web address] <ELECTRONICALLY SIGNED> By: Chester Tavares MD, [facility] 11/28/18 1233 1819 18 Chester Tavares MD, [facility] /EPI
== END 2018-11-26 20:02 | disposition home or self-care (01) ==
LOC: M.ERS 18:15
PROVIDERS: Family Medicine
DX: G47.00 Insomnia, unspecified (principal); F41.9 Anxiety disorder, unspecified; I10 Essential (primary) hypertension; E11.9 Type 2 diabetes mellitus without complications; I48.91 Unspecified atrial fibrillation; J44.9 Chronic obstructive pulmonary disease, unspecified; Z88.2 Allergy status to sulfonamides; Z90.49 Acquired absence of other specified parts of digestive tract; Z98.51 Tubal ligation status; Z91.040 Latex allergy status

== ENCOUNTER 2018-11-29 10:46 | Observation (INO) | payer OTHER ==
[~2018-11-29] VITALS: Ht 160 cm; Wt 85.4 kg
[~2018-11-29 10:46] MED LIST changes: +AMBIEN 5 MG TABL5 M1 PO; +LISINOPRIL40 MG PO
[2018-11-29 10:48] VITALS: BP 181/78
[2018-11-29] MEDS ORDERED: HYDROCHLOROTHIA25 M1 PO (10:52)
[2018-11-29 11:01] LABS: ABSOLUTE BASOPHILS 0.1 thou/uL (0.0-0.2); ABSOLUTE EOSINOPHILS 0.2 thou/uL (0.0-0.7); ABSOLUTE LYMPHOCYTES 1.6 thou/uL (0.8-5.3); ABSOLUTE MONOCYTES 0.8 thou/uL (0.0-1.2); ABSOLUTE NEUTROPHILS 4.4 thou/uL (1.6-8.1); BASOPHILS 1.1 %; EOSINOPHILS 2.9 %; HEMOGLOBIN 12.5 gm/dL (12.0-15.0); LYMPHOCYTES 22.8 %; MCH 28.9 pg (26.0-34.0); MCHC 33.9 g/dL (28.0-37.0); MCV 85.3 fL (80.0-100.0); MONOCYTES 11.1 %; MPV 9.3 fl. (7.2-11.1); NUCLEATED RBCS 0 /100WBC; PLATELET COUNT* 261 thou/uL (150-400); POLYS 62.1 %; RBC 4.34 mil/uL (4.20-5.00); RDW-CV 15.2 % (10.5-14.5); WBC 7.1 thou/uL (4.0-11.0)
[2018-11-29 11:27] LABS: ANION GAP 9 mmol/L (7-16); BUN 7 mg/dL (7-18); CALCIUM 9.7 mg/dL (8.5-10.1); CHLORIDE 99 mmol/L (98-107); CO2 30 mmol/L (21-32); CREATININE 1.1 mg/dL (0.6-1.3); GLUCOSE 203 mg/dL (70-99); SODIUM 138 mmol/L (136-145)
[2018-11-29 11:31] LABS: APTT 25.9 Seconds (25.0-31.3); POTASSIUM 2.8 mmol/L (3.5-5.1); PROTIME 10.2 Seconds (9.20-11.50)
[2018-11-29 11:40] LABS: ALBUMIN 3.2 g/dL (3.4-5.0); ALKALINE PHOSPHATASE 65 U/L (46-116); CK-MB MASS 0.7 ng/mL (<0.5-3.6); LIPASE 93 U/L (73-393); MAGNESIUM 1.6 mg/dL (1.8-2.4); NT-PRO BRAIN NAT PEPTIDE 1110 pg/mL (<300); SGOT 19 U/L (15-37); SGPT 30 U/L (30-65); TOTAL BILIRUBIN 0.4 mg/dL (<0.1-1.0); TOTAL PROTEIN 6.3 g/dL (6.4-8.2); TROPONIN-I LEVEL <0.06 ng/mL (<0.06)
[2018-11-29 12:00] VITALS: BP 117/81
[2018-11-29] MEDS ORDERED: TRAMADOL 50 MG50 MG PO ×2 (12:00)
[2018-11-29 15:13] VITALS: BP 145/66
[2018-11-29 15:52] VITALS: BP 169/64
--- NOTE | 2018-11-29 15:54 | NUR ---
RECEIVIED REPORT FROM KATHERINE DONNELLY IN ER AT 1438- DX: CHEST PAIN, HYPOKALEMIA- PT ARRIVED TO ROOM 227 VIA CART AT 1506, SBA TO BED- CO FOUNDER AND PRESIDENT PLACED ORDERED, TRACING A-PACED WITH NOTED PACE MAKER- PT A&O X4- CONTINENT OF BOWEL AND BLADDER, REPORTS OCCASIONAL STRESS INCONTINENTS- LCTA, DIMINISHED IN BASES; RESP EVEN AND UN-LABORED- VS 97.6 18 169/64 60 94% ON RA- ABD SOFT/ROUND/NON-TENDER, BS X4 QUADS- LAST BM REPORTED THIS AM- IV NOTED TO LEFT FA INTACT AND SL- CARDIO CONSULTED NOTED- SKIN C/D/I- UPPER DENTURES REPORTED- PT RATES PAIN 6/10 TO LEFT SHOULDER INTO BACK- CALL LIGHT AND PERSONAL BELONGINGS WITH IN REACH- HOURLY ROUNDS IN PLACE R/T SAFETY/NEEDS- ALL NEEDS MET AT THIS TIME-WCTM
--- NOTE | 2018-11-29 16:17 | EKG ---
[place] [address] ELECTROCARDIOGRAM REPORT Name: NABILA GAN Room: [place] [address] ADM IN .R.#: [id number] Admission: 11/29/18 Attend Phys: Mirlande Monroe MD Discharge: Date of : 46 Report #: [id number] THIS REPORT FOR: //name// [facility] ED Test Date: 2018-11-29 Test Time: 10:48:54 Pat Name: NABILA GAN Department: Room: [facility] Gender: F Vp Ancillary: : 1950 Requested By: George Pal Order Number: [id number] MD: Chester Tavares Measurements Intervals [place] Rate: 60 P: MA: 140 QRS: 26 QRSD: 97 T: 154 QT: 379 QTc: 379 Interpretive Statements Atrial-paced complexes Repol abnrm suggests ischemia, lateral leads Compared to ECG 11/26/2018 18:19:35 paced rhythm now noted Electronically Signed On 11-29-2018 16:17:21 CDT by Chester Tavares [email or web address] <ELECTRONICALLY SIGNED> By: Chester Tavares MD, [facility] 11/29/18 1617 1048 1048 Chester Tavares MD, [facility] /EPI
[2018-11-29 19:50] VITALS: BP 184/71
[2018-11-30] VITALS (7 sets, daily range): BP systolic 120–215; BP diastolic 66–85
[2018-11-30 05:17] LABS: POTASSIUM 3.8 mmol/L (3.5-5.1)
--- NOTE | 2018-11-30 05:47 | NUR ---
PT SLEPT MOST OF SHIFT. ASSESSMENT DOCUMENTED. MEDS GIVEN PER E-JUL. PT REPORTED PAIN AND ANXIETY, DR NOTIFIED, ORDERED RECIEVED. PT REPORTED RELIEF. WILL CONTINUE WITH PLAN OF CARE.
[2018-11-30] MEDS ORDERED: XANAX 0.5 MG0.5 MG PO ×2 (09:55)
[2018-11-30] MEDS ORDERED: PROCARDIA XL30 MG PO ×2 (09:55)
[2018-11-30] MEDS ORDERED: LIDOPATCH1 EACH TOP ×2 (09:55)
[2018-11-30] MEDS ORDERED: TRAMADOL 50 MG50 MG PO ×2 (09:55)
[2018-11-30] MEDS ORDERED: AMBIEN 10 MG TA10 MG PO ×2 (09:55)
--- NOTE | 2018-11-30 16:26 | NUR ---
ASSUSMED CARE OF PT APPROX 0730. REASSESSMENT COMPLETED CHARTED. MEDICATIONS GIVEN CAHRTED. PT HAS BEEN VERY ANXIOUS THIS SHIFT. PT HAS BEEN TELLING STAFF SHE IS GOING HOME ALL OF THE SHIFT. PT EDUCATION GIVEN MULITPLE TIMES THIS SHIFT ABOUT WHY PT STILL NEEDS TO BE HERE FOR MONITORING OF BP. PT VERBALIZED UNDERSTANDING. PT STATES SHE WILL STAY UNTIL DISCHARGED. MONOTORING PT BP. PT NEEDS BEING MET.
--- NOTE | 2018-11-30 19:06 | NUR ---
DISCHARGE TEACHING COMPLETED. PT VERBLIZED UNDERSTANDING. PT DENIES HAVING ANY QUESTIONS. PT ECORTED TO VEHILCE BY STAFF AT APPROX 1820.
--- NOTE | 2018-11-30 19:21 | NUR ---
I HAVE REVIEWED AND AGREE WITH THE ASSESMENT AND NOTES OF NAYANA Engel RN ON 11/30/18. PT WAS VERY ANXOIUS TODAY, PT STATED SEVERAL TIMES "I'M GOING TO LEAVE". PT WAS EDUCATED THAT SHE STILL HAD HIGH BP AND WAS STARTED ON NEW MEDS THAT THE PHYSICIAN WANTS TO MONITOR TODAY AND THEN POSSIBLE DC TO HOME IN THE EVENING. PT VERBALIZED UNDERSTANDING AT THE TIME BUT DID ASK AGAIN MULTIPLE TIMES THE SAME QUESTIONS. I SPOKE TO DR BALDERRAMA, OK FOR DC TONIGHT AFTER RECIEVING AN EXTRA DOSE OF BP MEDS. PT WAS ENCOURAGED TO FOLLOW UP WITH PCP TO DISCUSS ANXIETY AND MEDS. PT VERBALIZED UNDERSTANDING.
--- NOTE | 2018-12-01 08:59 | CON ---
[address] [address] CONSULTATION Name: NABILA GAN Room: [address] [place]#: [id number] Admission: 11/29/18 Attend Phys: Mirlande Monroe MD Discharge: 11/30/18 Date of : 46 Report #: [id number] THIS REPORT FOR: //name// CC: Mirlande GAYLE DO Joy jaskaran DATE OF SERVICE: 11/29/2018 INDICATION: Palpitations and left shoulder pain. HISTORY OF PRESENT ILLNESS: The patient is a pleasant 68-year-old white female who is well known to myself. In September of this year, she had a cardiac catheterization, which showed a patent MAI graft to the LAD, patent saphenous vein graft to a first diagonal, and a sequentially grafted saphenous vein graft to a PDA, posterolateral LV branch, third obtuse marginal and first obtuse marginal. No intervention was undertaken at that time. She had significant underlying [place] vascular disease. Her left ventricular systolic function was felt to be normal with an ejection fraction of 55-60%. Subsequently, she was seen with persistent atrial flutter. The patient underwent transesophageal-guided cardioversion. On the same date, the patient had a dual chamber pacemaker placement for sick sinus syndrome and tachybrady syndrome. The patient presented to the hospital this morning with complaints of left shoulder pain, radiating towards the back of the shoulder and arm. This has been going on and off for several days. The pain is worse with motion. She also has had some palpitations this morning. She states usually the palpitations will resolve rather quickly and her heart rate will return to 60 beats per minute. This morning, her episode was prolonged in nature. At the time of my visit, she is in sinus rhythm at a rate of 60 beats per minute. The palpitations have resolved. Initial cardiac enzymes were unremarkable. EKG did not show ST elevation. PAST MEDICAL HISTORY: 1. Coronary artery disease with previous coronary artery bypass grafting as outlined above. 2. Sick sinus syndrome, status post dual chamber pacemaker placement. 3. Paroxysmal atrial flutter. 4. Chronic anticoagulation. 5. Hypertension. 6. Dyslipidemia. 7. Type 2 diabetes mellitus. PAST SURGICAL HISTORY: 1. Coronary artery bypass grafting in 10/2007. 2. Status post pacemaker placement, [place] [address] CONSULTATION Name: GANNABILA Room: [address] [place]#: [id number] Admission: 11/29/18 Attend Phys: Mirlande Monroe MD Discharge: 11/30/18 Date of : 46 Report #: [id number] 3. Tubal ligation. 4. Appendectomy. 5. Cataract extraction. 6. Cholecystectomy. FAMILY HISTORY: Noncontributory. SOCIAL HISTORY: The patient is a lifelong nonsmoker. She does not smoke. ALLERGIES: LATEX AND SULFA. HOME MEDICATIONS: 1. Eliquis 5 mg p.o. b.i.d., sotalol 120 mg p.o. b.i.d., Anoro Ellipta 62.5/25 mcg 1 inhalation daily, enteric-coated aspirin 81 mg daily, Zyrtec 10 mg daily, Voltaren gel topically p.r.n., Imdur 30 mg 1/2 tablet daily, metformin 500 mg b.i.d., Livalo 4 mg daily, trazodone 50 mg 2 tablets at bedtime, Zoloft 50 mg daily, digoxin 0.125 mg daily, Ventolin inhaler q.4 hours p.r.n., Zestril 40 mg daily, hydrochlorothiazide 25 mg daily, and tramadol 50 mg daily p.r.n. REVIEW OF SYSTEMS: A 14-point review of systems is positive for palpitations, dyspnea on exertion, left shoulder pain as outlined above, insomnia, medical allergies outlined above. Otherwise, 14-point review of systems is unremarkable. IMPRESSION AND RECOMMENDATIONS: 1. Coronary artery disease, presently stable. I do not believe her shoulder pain represents any type of angina. Complete rule out with serial enzymes. No further cardiac workup at this time. 2. History of coronary artery bypass grafting as outlined above. 3. Paroxysmal atrial flutter. Continue sotalol at current dose. Monitor on telemetry. Should she have recurrence of atrial arrhythmias, could increase sotalol and follow in the hospital. 4. Dual chamber pacemaker, presently functioning normally. We will interrogate to see if the patient's had any dysrhythmias. 5. Hyperlipidemia. Continue Livalo at current dose. 6. Hypertension, adequately controlled on current medications. We will make adjustments as needed. 7. Type 2 diabetes mellitus, per hospitalist. 8. Insomnia, would try Ambien while in hospital. <ELECTRONICALLY SIGNED> By: Ky Morgan MD, FACC 12/01/18 0859 1436 [id number] Morgan MD, FACC /nt
== END 2018-11-30 18:35 | disposition home or self-care (01) ==
LOC: M.ERS 10:46 → M.2W 11:44 → M.TBA-ER 11:44 → M.2W 11:44
PROVIDERS: Family Medicine; ADMIT Internal Medicine
DX: R07.89 Other chest pain (principal); R00.2 Palpitations; I48.2 Chronic atrial fibrillation; I25.10 Atherosclerotic heart disease of native coronary artery without angina pectoris; M25.512 Pain in left shoulder; I10 Essential (primary) hypertension; E11.9 Type 2 diabetes mellitus without complications; J44.9 Chronic obstructive pulmonary disease, unspecified; E87.6 Hypokalemia; F41.9 Anxiety disorder, unspecified; G47.30 Sleep apnea, unspecified; I49.5 Sick sinus syndrome; E78.5 Hyperlipidemia, unspecified; I48.92 Unspecified atrial flutter; Z79.82 Long term (current) use of aspirin; Z79.84 Long term (current) use of oral hypoglycemic drugs; Z79.899 Other long term (current) drug therapy; Z95.1 Presence of aortocoronary bypass graft; Z79.01 Long term (current) use of anticoagulants

== ENCOUNTER → 2019-01-11 | Outpatient (CLI) | payer OTHER ==
[~2019-01-11] MED LIST changes: +AMBIEN 10 MG TA10 MG PO; +HYDROCHLOROTHIA25 M1 PO; +LIDOPATCH1 EACH TOP; +PROCARDIA XL30 MG PO; +TRAMADOL 50 MG50 MG PO; +XANAX 0.5 MG0.5 MG PO
[2019-01-11 10:17] LABS: HEMATOCRIT 38.5 % (37.0-47.0); HEMOGLOBIN 12.9 gm/dL (12.0-15.0); MCH 29.1 pg (26.0-34.0); MCHC 33.4 g/dL (28.0-37.0); MPV 8.6 fl. (7.2-11.1); RBC 4.42 mil/uL (4.20-5.00); RDW-CV 14.7 % (10.5-14.5); WBC 9.9 thou/uL (4.0-11.0)
[2019-01-11 10:33] LABS: ALBUMIN 3.7 g/dL (3.4-5.0); CALCIUM 10.5 mg/dL (8.5-10.1); CREATININE 1.6 mg/dL (0.6-1.3); POTASSIUM 3.8 mmol/L (3.5-5.1); TOTAL BILIRUBIN 0.4 mg/dL (<0.1-1.0); TOTAL PROTEIN 7.5 g/dL (6.4-8.2)
== END ==
LOC: M.LAB 01-04 14:53
PROVIDERS: Internal Medicine Cardiovascular Disease
DX: I48.91 Unspecified atrial fibrillation (principal); Z95.5 Presence of coronary angioplasty implant and graft

== ENCOUNTER → 2020-08-29 | Outpatient (CLI) | payer OTHER | LOC: M.ULTRA 10:15 | PROVIDERS: ATTEND Family Medicine | DX: E04.2 Nontoxic multinodular goiter (principal); E83.52 Hypercalcemia ==

== ENCOUNTER → 2020-10-04 | Outpatient (CLI) | payer OTHER | LOC: M.RAD 09-25 12:23 | PROVIDERS: ATTEND Internal Medicine Nephrology | DX: E83.52 Hypercalcemia (principal); N18.32 Chronic kidney disease, stage 3b; I70.0 Atherosclerosis of aorta; N32.89 Other specified disorders of bladder ==

== ENCOUNTER → 2020-11-28 | Outpatient (CLI) | payer OTHER ==
[2020-11-28 09:59] LABS: ALBUMIN 3.5 g/dL (3.4-5.0); CREATININE 1.6 mg/dL (0.6-1.3); POTASSIUM 4.2 mmol/L (3.5-5.1)
[2020-11-28 10:00] LABS: CALCIUM 10.2 mg/dL (8.5-10.1); CREATININE 1.6 mg/dL (0.6-1.3)
[2020-11-28 21:06] LABS: IgA 434 mg/dL (64-422); IgG 1303 mg/dL (586-1602); IgM 449 mg/dL (26-217)
== END ==
LOC: M.LAB 08:53
PROVIDERS: ATTEND Internal Medicine Nephrology
DX: E83.52 Hypercalcemia (principal); N18.32 Chronic kidney disease, stage 3b